=== PATIENT | female | born 2000 | race Caucasian/White ===

== ENCOUNTER 2022-08-05 12:32 | Outpatient (OUT) | payer OTHER, SELFPAY ==
[2022-08-06 04:07] LABS: Testosterone 31 ng/dL (13-71)
== END 2022-08-05 12:33 | disposition home or self-care (01) ==
LOC: LAB 12:37
DX: F64.0 Transsexualism (principal); Z79.899 Other long term (current) drug therapy
CPT/HCPCS: 36415; 82670; 84403

== ENCOUNTER 2023-03-03 12:53 | Outpatient (OUT) | payer OTHER, SELFPAY ==
[2023-03-03 13:16] LABS: Basophils Absolute Auto 0.1 10^3/uL (0.0-0.1); Basophils Percent Auto 0.8 % (0.2-2.0); Eosinophils Absolute Auto 0.1 10^3/uL (0.0-0.7); Eosinophils Percent Auto 0.7 % (0.9-7.0); Hematocrit 47.4 % (36.0-48.0); Hemoglobin 15.7 g/dL (12.0-16.0); Immature Granulocytes Abs Auto 0.13 10^3/uL (0.00-0.03); Immature Granulocytes Pct Auto 1.4 % (0.0-0.5); Lymphocytes Absolute Auto 2.8 10^3/uL (1.2-3.8); Mean Corpuscular HGB Conc 33.1 g/dL (29.9-35.2); Mean Corpuscular Hemoglobin 27.3 pg (26.7-34.0); Mean Corpuscular Volume 82.4 fL (81.0-99.0); Mean Platelet Volume 11.6 fL (9.5-13.5); Monocytes Absolute Auto 0.5 10^3/uL (0.3-0.8); Monocytes Percent Auto 5.7 % (1.7-12.0); Neutrophils Percent Auto 62.4 % (43.0-75.0); Platelet Count 380 10^3/uL (150-450); Red Blood Count 5.75 10^6/uL (4.20-5.40); Red Cell Distribution Width 14.3 % (11.0-15.0); White Blood Count 9.6 10^3/uL (4.0-11.0)
[2023-03-04 08:12] LABS: Testosterone 315 ng/dL (13-71)
[2023-03-04 10:09] LABS: Estradiol 52.8 pg/mL (.)
== END 2023-03-03 12:54 | disposition home or self-care (01) ==
LOC: LAB 12:55
DX: Z79.899 Other long term (current) drug therapy (principal)
CPT/HCPCS: 36415; 82670; 84403; 85025